=== PATIENT | male | born 1970 | race Hispanic/Latino ===

== ENCOUNTER 2017-04-10 10:56 | Emergency (ER) | payer SELFPAY ==
[2017-04-10 11:29] VITALS: RESP 18; TEMP 99; BMI 46.0
[2017-04-10] MEDS ORDERED: Tetracaine 0.5% Ophth 2 ML BOTTLE OS STA (11:33)
--- NOTE | 2017-04-10 11:49 | ED PDOC ---
Arrival/HPI - General Chief Complaint: Eye Problem Time Seen by Provider: 04/10/17 11:31 Historian: Patient - History of Present Illness Narrative History of Present Illness (Text): 04/10/17 11:50 A 46 year old male presents to the emergency department complaining of left eye irritation this morning. 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 Patient reports eye scratches and is teary. Patient also reports some blurry vision. Patient denies any other complaints at this time. Time/Duration: Other (yesterday) Symptom Onset: Sudden Context: Work Associated Symptoms (Text): none Past Medical History - Provider Review Nursing Documentation Reviewed: Yes - Infectious Disease Hx of Infectious Diseases: None - Tetanus Immunization Tetanus Immunization: Unknown - Past Medical History Past Medical History: No Previous - Psychiatric Hx Substance Use: No - Past Surgical History Past Surgical History: No Previous - Anesthesia Hx Anesthesia: No Hx Anesthesia Reactions: No Hx Malignant Hyperthermia: No - Suicidal Assessment Feels Threatened In Home Enviroment: No Family/Social History - Physician Review Nursing Documentation Reviewed: Yes Family/Social History: No Known Family HX Smoking Status: Heavy Smoker > 10 Cigarettes Daily Hx Alcohol Use: No Hx Substance Use: No Hx Substance Use Treatment: Yes Allergies/Home Meds Allergies/Adverse Reactions: Allergies No Known Allergies Allergy (Verified 04/10/17 11:29) Home Medications: Home Meds Medication Instructions Recorded Confirmed Clonazepam [Klonopin] 0.5 mg PO PRN PRN 04/10/17 04/10/17 Review of Systems - Physician Review All systems were reviewed & negative as marked: Yes - Review of Systems Eyes: Vision Changes, Other (L eye irritation) Neurological: absent: Headache Physical Exam Vital Signs Reviewed: Yes Vital Signs Temp Pulse Resp BP Pulse Ox 04/10/17 12:40 86 18 149/76 97 04/10/17 11:24 99 F 82 18 158/81 H 96 Temperature: Afebrile Blood Pressure: Hypertensive Pulse: Regular Respiratory Rate: Normal Appearance: Positive for: Well-Appearing, Non-Toxic, Comfortable Pain Distress: None Mental Status: Positive for: Alert and Oriented X 3 - Systems Exam Head: Present: Atraumatic, Normocephalic Pupils: Present: PERRL Extroacular Muscles: Present: EOMI Conjunctiva: Present: Other (mild conjunctiva to left eye) Mouth: Present: Moist Mucous Membranes Neck: Present: Normal Range of Motion Respiratory/Chest: Present: Clear to Auscultation, Good Air Exchange. No: Respiratory Distress, Accessory Muscle Use Cardiovascular: Present: Regular Rate and Rhythm, Normal S1, S2. No: Murmurs Abdomen: Present: Normal Bowel Sounds. No: Tenderness, Distention, Peritoneal Signs Back: Present: Normal Inspection Upper Extremity: Present: Normal Inspection. No: Cyanosis, Edema Lower Extremity: Present: Normal Inspection. No: Edema Neurological: Present: GCS=15, CN II-XII Intact, Speech Normal Skin: Present: Warm, Dry, Normal Color. No: Rashes Psychiatric: Present: Alert, Oriented x 3, Normal Insight, Normal Concentration Medical Decision Making ED Course and Treatment: 04/10/17 11:46 Impression: A 46 year old male with left eye irritation. Plan: -- Tetracaine -- Reassess and disposition Prior Visits: Notes and results from previous visits were reviewed. Patient last reported to the emergency department on 09/24/15 for evaluation of laceration to the face and mouth. Patient was treated with laceration repair of face and lip. Progress Notes: Increased fluoresce uptake at the 4 o'clock position. No foreign body. 04/10/17 15:14 no visible foreign body. pt states feels better in emergency room. advise outpt follow up with optho for slit lamp exam. pt agrees to see optho outpt - Medication Orders Current Medication Orders: Discontinued Medications Tetracaine HCl (Tetracaine 0.5% Ophth Soln) 1 drop OS STAT STA Stop: 04/10/17 11:34 Last Admin: 04/10/17 11:55 Dose: 1 drop - Scribe Statement The provider has reviewed the documentation as recorded by the Karley Orta Provider Scribe Attestation: All medical record entries made by the Scribe were at my direction and personally dictated by me. I have reviewed the chart and agree that the record accurately reflects my personal performance of the history, physical exam, medical decision making, and the department course for this patient. I have also personally directed, reviewed, and agree with the discharge instructions and disposition. Disposition/Present on Arrival - Present on Arrival Any Indicators Present on Arrival: No History of DVT/PE: No History of Uncontrolled Diabetes: No Urinary Catheter: No History of Decub. Ulcer: No History Surgical Site Infection Following: None - Disposition Have Diagnosis and Disposition been Completed?: Yes Diagnosis: Corneal abrasion Disposition: HOME/ ROUTINE Disposition Time: 12:00 Condition: STABLE Discharge Instructions (ExitCare): Corneal Abrasion (ED) Additional Instructions: please follow up with eye doctor. return to emergency room with worsening symptoms or concerns. Prescriptions: Polymyxin/Trimethoprim Sulfate [Polytrim Ophth Soln] 1 drop LEFTEYE Q4 #1 bottle Referrals: [facility] [Outside] - Follow up with primary [facility] [Outside] - Follow up with primary Al Caba MD [Staff Provider] - Follow up with primary PCP,NO [Primary Care Provider] - Follow up with primary
[2017-04-10 12:40] VITALS: BP 149/76; PULSE 86; O2SAT 97
== END 2017-04-10 12:40 | disposition home or self-care (01) ==
LOC: ED 10:56
DX: S05.02XA Injury of conjunctiva and corneal abrasion without foreign body, left eye, initial encounter (principal); X58.XXXA Exposure to other specified factors, initial encounter; Y92.9 Unspecified place or not applicable

== ENCOUNTER 2018-01-06 19:01 | Emergency (ER) | payer MEDICAID, OTHER ==
[2018-01-06 19:02] VITALS: BMI 46.0
[2018-01-06 19:07] VITALS: BP 143/93; PULSE 89; RESP 18; TEMP 97.7; O2SAT 99
[2018-01-06] MEDS ORDERED: Atrop/Hyosc/Scopal/PB Elixir (120 ml) PO STA (19:18)
[2018-01-06] MEDS ORDERED: Alum-Mag Hydrox-Simethicone Susp (30 mL) PO STA (19:18)
[2018-01-06 20:04] LABS: BASO # 0.01 K/mm3 (0.0-2.0); BASO % 0.1 % (0.0-3.0); EOS # 0.1 (0.0-0.7); EOS % 1.4 % (1.5-5.0); GRAN # 4.88 (1.4-6.5); GRAN % 60.3 % (50.0-68.0); HEMOGLOBIN 14.7 g/dL (14.0-18.0); LYMPH # 2.5 (1.2-3.4); LYMPH % 30.8 % (22.0-35.0); MEAN CELL VOLUME 84.4 fl (80.0-105.0); MEAN CORPUSCULAR HEMOGLOBIN 28.7 pg (25.0-35.0); MEAN CORPUSCULAR HGB CONC 33.9 g/dl (31.0-37.0); MEAN PLATELET VOLUME 12.2 fl (7.0-11.0); MONO # 0.6 (0.1-0.6); MONO % 7.4 % (1.0-6.0); RBC 5.13 10^6/uL (3.5-6.1); RED CELL DISTRIBUTION WIDTH 13.7 % (11.5-14.5); WHITE BLOOD COUNT 8.1 10^3/ul (4.5-11.0)
[2018-01-06 20:13] LABS: ALB/GLOB RATIO 1.4 (1.1-1.8); ALBUMIN 4.5 g/dL (3.0-4.8); ALT/SGPT 26 U/L (7-56); AST/SGOT 24 U/L (17-59); BLOOD UREA NITROGEN 15 mg/dL (7-21); CALCIUM 10.1 mg/dL (8.4-10.5); GFR AFRICAN-AMERICAN > 60; GFR NON-AFRICAN AMERICAN > 60; LIPASE 24 U/L (23-300)
--- NOTE | 2018-01-06 20:18 | ED PDOC ---
Arrival/HPI - General Chief Complaint: GI Problem Time Seen by Provider: 01/06/18 19:11 Historian: Patient - History of Present Illness Narrative History of Present Illness (Text): 01/06/18 20:12 A 47 year old male presents to the emergency department complaining of intermittent epigastric abdominal pain for the past few days. Patient describes his pain as a pressure and burning sensation which radiates towards his chest. He notes his symptoms worsen after eating. Patient reports taking supplements for working out and feels it irritates his symptoms. Patient denies any fever, chills, nausea, vomiting, diarrhea, urinary symptoms, hematochezia, shortness of breath or any other complaints. Time/Duration: Other (few days) Symptom Course: Unchanged, Intermittent Quality: Pressure, Burning Context: Home Past Medical History - Provider Review Nursing Documentation Reviewed: Yes - Infectious Disease Hx of Infectious Diseases: None - Tetanus Immunization Tetanus Immunization: Unknown - Past Medical History Past Medical History: No Previous - Psychiatric Hx Substance Use: No Other/Comment: Past drug abuse. - Past Surgical History Past Surgical History: No Previous - Anesthesia Hx Anesthesia: No Hx Anesthesia Reactions: No Hx Malignant Hyperthermia: No - Suicidal Assessment Feels Threatened In Home Enviroment: No Family/Social History - Physician Review Nursing Documentation Reviewed: Yes Family/Social History: No Known Family HX Smoking Status: Heavy Smoker > 10 Cigarettes Daily Hx Alcohol Use: No Hx Substance Use: No Hx Substance Use Treatment: Yes Allergies/Home Meds Allergies/Adverse Reactions: Allergies No Known Allergies Allergy (Verified 01/06/18 19:07) Home Medications: Home Meds Medication Instructions Recorded Confirmed Buprenorphine HCl/Naloxone HCl 0.1 mg PO DAILY 01/06/18 01/06/18 [Suboxone 2 mg-0.5 mg Sl Film] Risperidone [Risperdal] 1 tab PO HS 01/06/18 01/06/18 Review of Systems - Physician Review All systems were reviewed & negative as marked: Yes - Review of Systems Constitutional: absent: Fevers, Night Sweats Respiratory: absent: SOB Gastrointestinal: Abdominal Pain (epigastric pain radiating to chest). absent: Diarrhea, Nausea, Vomiting, Hematochezia Genitourinary Male: absent: Dysuria, Frequency, Hematuria, Urinary Output Changes Physical Exam Vital Signs Reviewed: Yes Vital Signs Temp Pulse Resp BP Pulse Ox 01/06/18 19:03 97.7 F 89 18 143/93 H 99 Temperature: Afebrile Blood Pressure: Hypertensive Pulse: Regular Respiratory Rate: Normal Appearance: Positive for: Well-Appearing, Non-Toxic, Comfortable Pain Distress: None Mental Status: Positive for: Alert and Oriented X 3 - Systems Exam Head: Present: Atraumatic, Normocephalic Pupils: Present: PERRL Extroacular Muscles: Present: EOMI Conjunctiva: Present: Normal Mouth: Present: Moist Mucous Membranes Neck: Present: Normal Range of Motion Respiratory/Chest: Present: Clear to Auscultation, Good Air Exchange. No: Respiratory Distress, Accessory Muscle Use, Tender to Palpation Cardiovascular: Present: Regular Rate and Rhythm, Normal S1, S2. No: Murmurs Abdomen: Present: Tenderness (Epigastric tenderness to palpation), Normal Bowel Sounds. No: Distention, Peritoneal Signs, Rebound, Guarding Back: Present: Normal Inspection Upper Extremity: Present: Normal Inspection. No: Cyanosis, Edema Lower Extremity: Present: Normal Inspection. No: Edema Neurological: Present: GCS=15, CN II-XII Intact, Speech Normal Skin: Present: Warm, Dry, Normal Color. No: Rashes Psychiatric: Present: Alert, Oriented x 3, Normal Insight, Normal Concentration Medical Decision Making ED Course and Treatment: 01/06/18 20:12 Impression: A 47 year old male with epigastric pain radiating to chest Differential Diagnosis included but are not limited to: Abdominal/chest pain most consistent with gastritis/GERD Plan: -- Chest xray -- EKG -- Labs -- , Duoneb, Pepcid and Lidocaine -- Reassess and disposition Progress Notes: EKG shows NSR at [address]-segment elevations, normal intervals, normal axis. Interpreted by me. Chest xray read and interpreted by me, which shows no active disease. Patient felt better after medications. He is able to tolerate PO fluids. He was advised to return to the ED if symptoms worsen or any other concern. - Lab Interpretations Lab Results: 01/06/18 19:42 01/06/18 19:42 Lab Results 01/06/18 19:42: Sodium 141, Potassium 4.1, Chloride 105, Carbon Dioxide 25, Anion Gap 16, BUN 15, Creatinine 0.7 L, Est GFR ( Amer) > 60, Est GFR ( Non-Af Amer) > 60, Random Glucose 94, Calcium 10.1, Total Bilirubin 0.7, AST 24 , ALT 26, Alkaline Phosphatase 55, Total Protein 7.7, Albumin 4.5, Globulin 3.3 , Albumin/Globulin Ratio 1.4, Lipase 24 01/06/18 19:42: WBC 8.1, RBC 5.13, Hgb 14.7, Hct 43.3, MCV 84.4, MCH 28.7, MCHC 33.9, RDW 13.7, Plt Count 114 L, MPV 12.2 H, Gran % 60.3, Lymph % (Auto) 30.8, Edgar % (Auto) 7.4 H, Eos % (Auto) 1.4 L, Baso % (Auto) 0.1, Gran # 4.88, Lymph # (Auto) 2.5, Edgar # (Auto) 0.6, Eos # (Auto) 0.1, Baso # (Auto) 0.01 I have reviewed the lab results: Yes - RAD Interpretation Radiology Orders: 01/06/18 19:19 CXR [CHEST PORTABLE] [RAD] Stat - Medication Orders Current Medication Orders: Discontinued Medications Al Hydrox/Mg Hydrox/Simethicone (Maalox Plus 30 Ml) 30 ml PO STAT STA Stop: 01/06/18 19:19 Last Admin: 01/06/18 20:18 Dose: 30 ml Belladonna/Phenobarbital ( Elixir) 5 ml PO STAT STA Stop: 01/06/18 19:19 Last Admin: 01/06/18 20:18 Dose: 5 ml Famotidine (Pepcid) 20 mg IVP STAT STA Stop: 01/06/18 19:18 Last Admin: 01/06/18 20:18 Dose: 20 mg IVP Administration Document 01/06/18 20:18 MS (Rec: 01/06/18 20:18 MS [id number]) Charges for Administration # of IVP Administrations 1 Lidocaine HCl (Lidocaine 2% Viscous) 15 ml PO STAT STA Stop: 01/06/18 19:19 Last Admin: 01/06/18 20:18 Dose: 15 ml - Scribe Statement The provider has reviewed the documentation as recorded by the Krysiblaura Valentine Provider Scribe Attestation: All medical record entries made by the Scribe were at my direction and personally dictated by me. I have reviewed the chart and agree that the record accurately reflects my personal performance of the history, physical exam, medical decision making, and the department course for this patient. I have also personally directed, reviewed, and agree with the discharge instructions and disposition. Disposition/Present on Arrival - Present on Arrival Any Indicators Present on Arrival: No History of DVT/PE: No History of Uncontrolled Diabetes: No Urinary Catheter: No History of Decub. Ulcer: No History Surgical Site Infection Following: None - Disposition Have Diagnosis and Disposition been Completed?: Yes Diagnosis: Abdominal pain, Chest pain Disposition: HOME/ ROUTINE Disposition Time: 21:52 Patient Plan: Discharge Condition: IMPROVED Discharge Instructions (ExitCare): Acute Abdomen (Belly Pain), Adult (DC), Chest Pain (ED) Additional Instructions: Mr Elias, thank you for letting us take care of you today. Your provider was Dr. Rojo. You were treated for Abdominal Pain, Chest Pain. The emergency medical care you received today was directed at your acute symptoms. If you were prescribed any medication, please fill it and take as directed. It may take several days for your symptoms to resolve. Return to the Emergency Department if your symptoms worsen, do not improve, or if you have any other problems. Please contact your doctor or call one of the physicians/clinics you have been referred to that are listed on the Patient Visit Information form that is included in your discharge packet. Bring any paperwork you were given at discharge with you along with any medications you are taking to your follow up visit. Our treatment cannot replace ongoing medical care by a primary care provider (PCP) outside of the emergency department. Thank you for allowing the [facility] team to be part of your care today. If you had an X-Ray or CT scan: A Radiologist will review the ED reading if any change in treatment is needed we will contact you. If you had a blood, urine, or wound culture: It will take several days for the results, if any change in treatment is needed we will contact you. If you had an STI test: It will take 48 hours for the results. Please call after 1 week if you have not heard back. Prescriptions: Famotidine [Pepcid AC] 10 mg PO BID #30 tablet [facility] - Follow up with primary Forms: [employer] [facility] (Eth[place]ian), WORK NOTE
--- NOTE | 2018-01-07 08:45 | RAD ---
HISTORY: Cough, abdominal pain. COMPARISON: No prior. FINDINGS: LUNGS: No active pulmonary disease. PLEURA: No significant pleural effusion identified, no pneumothorax apparent. CARDIOVASCULAR: Normal. OSSEOUS STRUCTURES: No significant abnormalities. VISUALIZED UPPER ABDOMEN: Normal. OTHER FINDINGS: None. IMPRESSION: No active disease. Concordant results with the preliminary interpretation rendered by the emergency department physician procedure.
--- NOTE | 2018-01-07 17:21 | CARD ---
APPROVED REPORT EKG Measurement Heart [id number] <Conclusion> Normal sinus rhythm Normal ECG
== END 2018-01-06 21:52 | disposition home or self-care (01) ==
LOC: ED 19:01
DX: R07.9 Chest pain, unspecified (principal); R10.13 Epigastric pain; F17.210 Nicotine dependence, cigarettes, uncomplicated